=== PATIENT | female | born 1960 | race Caucasian/White ===

== ENCOUNTER 2019-09-07 09:59 | Emergency (ER) | payer BC, SELFPAY ==
[2019-09-07 10:00] VITALS: BP 165/107; PULSE 71; RESP 18; TEMP 36.6; O2SAT 100; BMI 30.4
[2019-09-07 10:43] LABS: Absolute Lymphocyte Count 1.18 X10^3/uL (0.83-4.51); Absolute Neutrophil Count 11.3 X10^3/uL (2.0-7.7); Basophil# 0.06 X10^3/uL; Basophil% 0.4 % (0-1); Eosinophil# 0.34 X10^3/uL; Eosinophils% 2.5 % (0-5); Hematocrit 45.7 % (37-47); Hemoglobin 15.6 g/dL (12.0-15.0); Lymphocyte # 1.18 X10^3/ul (4.0); Lymphocyte % 8.8 % (19-41); Mean Corp Hgb Conc 34.1 g/dL (32-36); Mean Corpuscular Volume 93.6 fL (81-99); Mean Platelet Vol. 9.4 fl (6.2-12.0); Monocyte# 0.59 X10^3/uL; Monocyte% 4.4 % (0-10); NRBC Flagged by Analyzer 0 % (0-5); Neutrophil # 11.26 X10^3/uL (2.7-7.7); Neutrophil % 83.5 % (47-70); Platelet Count 350 K/mm3 (150-450); RBC Distribution Width CV 11.7 % (11.6-14.6); RBC Distribution Width SD 40.3 fl (35.1-43.9); Red Blood Count 4.88 M/mm3 (4.2-5.4); White Blood Count 13.5 K/mm3 (4.4-11.0)
[2019-09-07] MEDS: DiphenhydrAMINE 50 MG/ML Syringe 25 MG IV (10:49)
[2019-09-07] MEDS: Lactated Ringers 1,000 ML 999 ML IV ×2 (10:49→11:30)
[2019-09-07] MEDS: proMETHazine 25 MG/ML Syringe 12.5 MG IV (10:50)
[2019-09-07] MEDS: Ketorolac 15 MG/ML Vial IV (10:51)
--- NOTE | 2019-09-07 10:52 | ED.VIS.GI ---
History of Present Illness Chief Complaint: Nausea/Vomiting/Diarrhea Narrative: Patient presenting for evaluation secondary to nausea vomiting diarrhea and headache. Patient reports that she has been having a GI illness over the course of this week starting on Tuesday. She initially states that it started with significant diarrhea but tapered off. She now reports that she is had an onset of severe nausea and vomiting since yesterday with difficulty keeping things down. Patient states that her emesis is nonbloody and nonbilious, and her stool was not mucousy and nonbloody. She denies any recent admissions, travel, antibiotic use, or sick exposures. Patient has a history of migraines, states that she started to develop a headache today. This is generalized headache. No visual changes numbness or weakness. Review of systems otherwise negative. Patient also endorses that she has been off of her citalopram over the course the last week because she ran out of it. She is been on it for at least 10 years. Past Medical History - Allergies and Home Meds Allergies/Adverse Reactions: Allergies codeine Adverse Reaction (Verified 09/07/19 10:02) Itching Primary Care Physician: Care Physician,No Primary [Primary Care Provider] - Past Medical History: - - Migraine headaches, hypertension Surgical History: ,  Smoking Status: Current every day smoker Review of Systems All systems negative except as indicated General: Reports: Chills, Malaise Eyes: Denies: Visual changes - bilaterally, Diplopia ENT: Denies: Rhinorrhea, Sore throat Cardiovascular: Denies: Chest pain, Palpitations Respiratory: Denies: Dyspnea, Cough, Dyspnea on exertion Gastrointestinal: Reports: Abdominal pain, Nausea, Vomiting, Diarrhea Genitourinary: Denies: Dysuria, Hematuria, Frequency Musculoskeletal: Reports: Myalgias Skin: Denies: Rash, Wounds Neurological: Reports: Headache Psych: Denies: Depression Endocrine: Denies: Heat intolerance, Cold intolerance Hematologic: Denies: Easy bruising, Easy bleeding Allergy: Denies: Swelling of the mouth Physical Exam Vital Signs/Narrative: Vital Signs Temp Pulse Resp BP Pulse Ox 09/07/19 10:00 98 F 71 18 165/107 H 100 Inital Vital Signs reviewed: Yes General: Well nourished, Well developed, No Acute Distress Head: Normocephalic, Atraumatic. Negative for: Tenderness Eyes: Perrl, EOMI ENT: Moist mucous membranes, No rhinorrhea Neck: Supple, Nontender Cardiovascular: Regular rate, Regular rhythm, No murmurs Respiratory: No distress, CTA bilaterally, Chest nontender Abdomen: Soft, Nondistended, Tender - Diffuse nonlocalizing with no guarding or rebound tenderness Back: Nontender, Normal Inspection Extremities: Nontender, No edema Skin: Normal color, No rash Neurological: Alert, Oriented x3, Cranial nerves II-XII grossly intact, Normal Strength, Normal Sensation Psychological: Normal affect, Normal Mood Diagnostic/Tx/Re-eval - Medical Decision Making Patient presented secondary to headache nausea vomiting diarrhea. Patient's abdominal exam is benign I do not feel that imaging is indicated. She was complaining of a migraine headache as well as GI symptoms so she was given Toradol, Reglan, and Benadryl as well as 2 L of lactated Ringer's. Patient's laboratory work-up was obtained. CBC demonstrate a leukocytosis of 13 with a neutrophilic predominance. Chemistry was actually found to be within normal limits, modest elevation of the patient's alkaline phosphatase. Patient upon repeat evaluation had significant symptomatic improvement. At this point I feel the patient is safe and appropriate for discharge home with continued outpatient treatment. Patient will be sent home with a course of Phenergan for nausea control. All questions were answered and patient was discharged. Disposition: Home ED Disposition - Plan for ED Patient: Disposition: Home or Assisted Living Diagnosis: Gastroenteritis, Migraine headache Instructions: VOMITING AND DIARRHEA, Nonspecific (Adult) Prescriptions: proMETHazine tablet [Phenergan] 25 mg PO Q6H PRN PRN #10 tab PRN Reason: Nausea Prescription Printed Additional Instructions: Follow-up with your primary care physician if you are not improving within the next 3 to 5 days
[2019-09-07 10:58] LABS: AST(SGOT) 15 U/L (15-37); Alanine Aminotransfer ALT/SGPT 23 U/L (13-56); Albumin, Serum 3.8 g/dL (3.2-5.0); Alkaline Phosphatase 120 U/L (45-117); Anion Gap 7 (5-15); BUN 19 mg/dL (7-18); BUN/Creat Ratio 19.4 RATIO (10-20); Calcium,Total 9.2 mg/dL (8.5-10.1); Chloride 105 mmol/L (98-107); Creatinine, Serum 0.98 mg/dL (0.55-1.02); EST Glomerular Filtration Rate 62 mL/min (>60); Est Glom Filt Rate - Afr Amer 75 mL/min (>60); Estimated Creatinine Clearance 63.12 ml/min; Globulin 3.8 g/dL (2.2-4.2); Glucose 204 mg/dL (74-106); Magnesium 1.7 mg/dL (1.6-2.6); Potassium 4.1 mmol/L (3.5-5.1); Protein, Total 7.6 g/dL (6.4-8.2); Sodium Level 139 mmol/L (136-145)
[2019-09-07 14:35] VITALS: BP 148/70; PULSE 82; RESP 18; O2SAT 97
== END 2019-09-07 14:36 | disposition home or self-care (01) ==
PROVIDERS: Emergency Provider Emergency Medicine
DX: K52.9 Noninfective gastroenteritis and colitis, unspecified (principal); G43.909 Migraine, unspecified, not intractable, without status migrainosus; I10 Essential (primary) hypertension; F17.200 Nicotine dependence, unspecified, uncomplicated; Z88.5 Allergy status to narcotic agent
CPT/HCPCS: 80053; 83735; 85025; 96361; 96374; 96375; 99283

== ENCOUNTER 2020-12-21 10:28 | Emergency (ER) | payer BC, SELFPAY ==
[2020-12-21 10:30] VITALS: BP 150/107; PULSE 86; RESP 16; TEMP 35.9; O2SAT 98; BMI 31.3
[2020-12-21 10:50] VITALS: BP 150/107; PULSE 86; RESP 16; TEMP 36.1; O2SAT 98
--- NOTE | 2020-12-21 10:53 | CT_ITS ---
STUDY: CT ABDOMEN AND PELVIS WITH CONTRAST REASON FOR EXAM: Female, 60 years old. LLQ pain -- IV PO Contrast RADIATION DOSAGE (If Supplied By Facility): CTDIvol = ( 16.67 ) mGy, DLP = ( 1062.83 ) mGycm TECHNIQUE: Transaxial images were obtained from the dome of the diaphragm to the symphysis pubis with oral contrast. Oral and amp;amp; IV Gastrografin and amp;amp; 100mL Isovue-300 was administered. Sagittal and coronal images were reconstructed. Individualized dose optimization techniques were used for this CT. COMPARISON: None. FINDINGS: The visualized lung bases are unremarkable. The visualized portions of the heart are within normal limits. Normal liver. Normal gallbladder and extrahepatic biliary system. Normal spleen. Normal pancreas. Normal bilateral adrenal glands. Normal right kidney. 5 mm obstructing stone of the distal left ureter with moderate ureteral dilatation and hydronephrosis. Normal visualized stomach. Normal small intestine. Normal colon. The appendix is visualized and appears normal. Normal abdominal aorta. Normal inferior vena cava. Normal retroperitoneum. Normal urinary bladder. Normal abdominal wall. Normal osseous structures. CT/Abdomen/Pelvis WITH Contrast IMPRESSION: 5 mm obstructing stone of the distal left ureter with moderate ureteral dilatation and hydronephrosis. Electronically Signed: Palmer Beckford MD at 13:28 EST Tel , Service support ,
--- NOTE | 2020-12-21 10:56 | ED.DCSUM_ITS ---
History of Present Illness Chief Complaint: Abd Pain Informant: Patient Onset: Yesterday Current Severity: Moderate Maximum Severity: Moderate Narrative: Patient presents with left lower quadrant pain. Patient states pain started yesterday. She has had nausea and vomiting. Last bowel movement was 2 days ago. She does note that her bowel movements have been abnormal for the last week, describing them as being more soft and mucousy. She has had chills. Patient does report a history of diverticulitis that was noted on a colonoscopy approximately 10 years ago. She was treated with antibiotics at that time. - Past Medical History (1) Anxiety Status: Chronic (2) Benign hypertension Status: Chronic Past Medical History - Allergies and Home Meds Allergies/Adverse Reactions: Allergies codeine Adverse Reaction (Verified 12/21/20 10:30) Itching metformin Adverse Reaction (Verified 12/21/20 10:30) Nausea/Vom/Diarrhea Primary Care Physician: Trevor Avilez DO [Primary Care Provider] - Prior records reviewed: Yes Surgical History: , Lives: Spouse/ Significant Other Smoking Status: Current every day smoker Review of Systems General: Denies: Chills, Fever Eyes: Denies: Visual changes - bilaterally ENT: Denies: Bilateral ear pain Cardiovascular: Denies: Chest pain Respiratory: Denies: Dyspnea, Cough Gastrointestinal: Reports: Abdominal pain, Nausea, Vomiting Genitourinary: Denies: Dysuria Musculoskeletal: Denies: Swelling, Extremity Pain Skin: Denies: Rash Neurological: Denies: Headache Hematologic: Denies: Easy bruising, Easy bleeding Allergy: Denies: Uticaria Physical Exam Vital Signs/Narrative: Vital Signs Temp Pulse Resp BP Pulse Ox 12/21/20 10:50 96.9 F L 86 16 150/107 H 98 12/21/20 10:30 96.6 F L 86 16 150/107 H 98 Inital Vital Signs reviewed: Yes General: Well nourished, Well developed Head: Normocephalic Neck: Supple Cardiovascular: Regular rate, Regular rhythm Respiratory: No distress, CTA bilaterally Abdomen: Soft, Tender - Moderate left-sided tenderness to palpation., Hypoactive bowel sounds. Negative for: Guarding, Rebound tenderness Extremities: Nontender Skin: Normal color Neurological: Alert, Oriented x3 Psychological: Normal affect Diagnostic/Tx/Re-eval Impressions Abdomen/Pelvis CT 12/21/20 10:53 IMPRESSION: 5 mm obstructing stone of the distal left ureter with moderate ureteral dilatation and hydronephrosis. Electronically Signed: Palmer Beckford MD at 13:28 EST Tel , Service support , 12/21/20 10:53 Abdomen/Pelvis WITH Contrast [CT] Stat Laboratory Results 12/21/20 12/21/20 11:00 11:00 WBC 8.9 RBC 4.78 Hgb 15.1 H Hct 44.6 MCV 93.3 MCH 31.6 MCHC 33.9 RDW Std Deviation 42.5 RDW Coeff of Estela 12.1 Plt Count 322 MPV 9.6 Immature Gran % (Auto) 0.200 Neut % (Auto) 70.0 Lymph % (Auto) 15.9 L [place] % (Auto) 10.2 H Eos % (Auto) 2.7 Baso % (Auto) 1.0 Absolute Neuts (auto) 6.2 Absolute Lymphs (auto) 1.41 Nucleated RBC % 0 Sodium 138 Potassium 3.9 Chloride 104 Carbon Dioxide 24.0 Anion Gap 10 BUN 17 Creatinine 1.34 H Estim Creat Clear Calc 43.96 Est GFR (MDRD) Af Amer 52 L Est GFR (MDRD) Non-Af 43 L BUN/Creatinine Ratio 12.7 Glucose 115 H Calcium 9.3 - Medical Decision Making Patient was given morphine and Zofran along with IV fluids. Blood work is largely unremarkable. Creatinine is slightly bumped. CT scan with p.o. and IV contrast is obtained. She has a 5 mm left distal ureteral stone. No evidence of diverticulitis. Test results are discussed with her. Pain is well controlled at this time. She will be given analgesics and antiemetics for home. She is referred to urology for follow-up. She is given return instructions. ED Disposition - Plan for ED Patient: Disposition: Home or Assisted Living Diagnosis: Ureterolithiasis Instructions: ED Kidney Stone w/ Colic Prescriptions: Tamsulosin HCl [Flomax] 0.4 mg PO DAILY #7 cap Transmission Status: Pending to [id number] Hydrocodone Bitart/Apap 5-325 [[place] 5MG-325MG] 1 tablet PO Q6H PRN PRN 3 Days #10 tablet PRN Reason: Pain Transmission Status: Received by [id number] Ketorolac [Toradol] 10 mg PO Q8H PRN #10 tab PRN Reason: Pain Score 4-10 Transmission Status: Pending to [id number] Ondansetron [Zofran Odt] 4 mg PO Q8H PRN PRN #10 tab PRN Reason: Nausea Transmission Status: Pending to [id number] Referrals: Julius Dangelo MD [STAFF PHYSICIAN] - 3-5 Days if not improving
[2020-12-21 10:57] VITALS: BP 138/76; PULSE 69; RESP 17; O2SAT 98
[2020-12-21] MEDS: 0.9% Normal Saline 1,000 ML 150 ML IV (11:11)
[2020-12-21] MEDS: Ondansetron 4 MG/2 ML Vial IV (11:11)
[2020-12-21] MEDS: Morphine 4 MG/ML Syringe IV (11:11)
[2020-12-21 11:12] LABS: Absolute Lymphocyte Count 1.41 X10^3/uL (0.83-4.51); Absolute Neutrophil Count 6.2 X10^3/uL (2.0-7.7); Basophil# 0.09 X10^3/uL; Eosinophil# 0.24 X10^3/uL; Eosinophils% 2.7 % (0-5); Hematocrit 44.6 % (37-47); Hemoglobin 15.1 g/dL (12.0-15.0); Lymphocyte # 1.41 X10^3/ul (4.0); Lymphocyte % 15.9 % (19-41); Mean Corp Hgb Conc 33.9 g/dL (32-36); Mean Corpuscular Hgb 31.6 pg (27.0-32.0); Mean Corpuscular Volume 93.3 fL (81-99); Mean Platelet Vol. 9.6 fl (6.2-12.0); Monocyte# 0.91 X10^3/uL; Monocyte% 10.2 % (0-10); NRBC Flagged by Analyzer 0 % (0-5); Neutrophil # 6.21 X10^3/uL (2.7-7.7); Platelet Count 322 K/mm3 (150-450); RBC Distribution Width CV 12.1 % (11.6-14.6); RBC Distribution Width SD 42.5 fl (35.1-43.9); Red Blood Count 4.78 M/mm3 (4.2-5.4); White Blood Count 8.9 K/mm3 (4.4-11.0)
[2020-12-21 11:28] LABS: Anion Gap 10 (5-15); BUN 17 mg/dL (7-18); BUN/Creat Ratio 12.7 RATIO (10-20); Calcium,Total 9.3 mg/dL (8.5-10.1); Chloride 104 mmol/L (98-107); Creatinine, Serum 1.34 mg/dL (0.55-1.02); EST Glomerular Filtration Rate 43 mL/min (>60); Est Glom Filt Rate - Afr Amer 52 mL/min (>60); Estimated Creatinine Clearance 43.96 ml/min; Glucose 115 mg/dL (74-106); Potassium 3.9 mmol/L (3.5-5.1); Sodium Level 138 mmol/L (136-145)
[2020-12-21 13:12] VITALS: BP 146/83; PULSE 65; RESP 16; O2SAT 98
== END 2020-12-21 13:58 | disposition home or self-care (01) ==
PROVIDERS: Emergency Provider Emergency Medicine; PCP Student in an Organized Health Care Education/Training Program
DX: N13.2 Hydronephrosis with renal and ureteral calculous obstruction (principal); I10 Essential (primary) hypertension; F17.200 Nicotine dependence, unspecified, uncomplicated; Z88.5 Allergy status to narcotic agent
CPT/HCPCS: 74177; 80048; 85025; 96361; 96374; 96375; 99283; J7030; Q9967; A4216; J2405

== ENCOUNTER 2021-01-21 10:11 | Outpatient (RCR) | payer BC, SELFPAY | END 2021-03-24 23:59 | LOC: IMMUN 10:11 | PROVIDERS: PCP Student in an Organized Health Care Education/Training Program; Visit Provider Family Medicine | DX: Z23 Encounter for immunization (principal) | CPT/HCPCS: 0001A; 91300 ==

== ENCOUNTER 2022-05-29 08:24 | Emergency (ER) | payer BC, SELFPAY ==
[2022-05-29 08:25] VITALS: BP 167/88; PULSE 84; RESP 26; TEMP 36.3; O2SAT 100; BMI 30.2
--- NOTE | 2022-05-29 08:53 | EDS_ITS ---
HPI HPI - GI History of Present Illness Chief Complaint: Nausea/Vomiting Narrative Narrative: 62-year-old female presenting with headache as well as nausea and vomiting. She states she woke up with it and has been vomiting for about 3 hours. No hematemesis or coffee-ground emesis. She has some mild diffuse cramping pain as well as epigastric pain. Patient states that last evening she drank a couple of glasses of wine. She states this would normally make her sick. She also smoked marijuana which she does regularly which never makes her sick. Patient does report that her family member did have a flulike symptom the other day. She has not had a fever but does feel a little bit rundown today. She reports body aches and chills. No cough, shortness of breath, chest pain. PFSH PFSH Home Medications citalopram 20 mg tablet 40 mg PO QHS 02/08/14 [History Last Taken 09/06/19] lisinopril 10 mg tablet 10 mg PO DAILY 02/08/14 [History Last Taken 09/06/19] ondansetron 4 mg disintegrating tablet 4 mg PO Q8H PRN PRN Nausea #10 tabs 06/10/17 [Rx Last Taken 09/07/19] promethazine 25 mg tablet 25 mg PO Q6H PRN PRN Nausea #10 tabs 09/07/19 [Rx Last Taken Unknown] Meloxicam 12/21/20 [History Last Taken Unknown] carvedilol 12.5 mg tablet 12.5 mg PO BID 12/21/20 [History Last Taken Unknown] cyclobenzaprine 10 mg tablet 10 mg PO 12/21/20 [History Last Taken Unknown] ketorolac 10 mg tablet 10 mg PO Q8H PRN Pain Score 4-10 #10 tabs 12/21/20 [Rx Last Taken Unknown] ondansetron 4 mg disintegrating tablet 4 mg PO Q8H PRN PRN Nausea #10 tabs 12/21/20 [Rx Last Taken Unknown] tamsulosin 0.4 mg capsule 0.4 mg PO DAILY #7 caps 12/21/20 [Rx Last Taken Unknown] ondansetron 4 mg disintegrating tablet 4 mg PO Q8H PRN nausea and vomiting #10 tabs 05/29/22 [Rx Last Taken Unknown] Allergy/AdvReac Type Severity Reaction Status Date / Time codeine AdvReac Itching Verified 05/29/22 08:29 metformin AdvReac Nausea/Vom/ Verified 05/29/22 08:29 Diarrhea Social History Smoking Status: Current every day smoker tobacco type: cigarettes ROS ROS ED Constitutional Constitutional ED: Reports chills and sweats ENT ENT ED: Denies rhinorrhea or sore throat Cardiovascular Cardiovascular: Denies chest pain or palpitations Respiratory/Chest Respiratory/Chest: Denies cough or dyspnea Gastrointestinal Gastrointestinal: Reports abdominal pain, nausea and vomiting Genitourinary Genitourinary ED: Denies dysuria or hematuria Musculoskeletal Musculoskeletal: Reports myalgias Integumentary Denies abscess or Abrasions Neurologic Neurologic: Reports headache(s); Denies paresthesias or weakness Psychiatric Psychiatric: Denies anxiety or depression Endocrine Endocrinology: Denies polydipsia or polyphagia EXAM Physical Exam Const Vital Signs: 05/29/22 08:25 Temperature 97.3 F L Temperature Source Temporal Pulse Rate 84 Respiratory Rate 26 H Blood Pressure 167/88 H Blood Pressure Mean 114 Pulse Ox 100 Oxygen Delivery Method Room Air Positive well nourished General Appearance ED: NAD; Negative for pallor HEENT Reports TM's clear and moist mucous membranes normocephalic Tympanic Membrane ED: Yes TM's clear Eyes PERRL and EOMs intact bilaterally Resp normal respiratory effort and clear to auscultation bilaterally Cardio regular rate and regular rhythm GI GI Narrative: Benign abdomen Neuro CN's II-XII intact bilaterally Sensorium / Orientation: alert, oriented to person, oriented to place and oriented to time Motor Exam: strength 5/5 throughout Psych mental status grossly normal Skin General Skin Exam: Negative for jaundice or pallor MDM MDM MDM Narrative Medical decision making narrative: 62-year-old female headache, nausea, vomiting. She has not had a fever. She does describe body aches and chills as well. Patient had 2 glasses of wine last evening but did not think this was contributory. She does have some generalized abdominal cramping. Her abdominal exam is benign. She has no history of pancreatitis. Zofran and Pepcid. Her nausea did improve. Blood work shows a slight leukocytosis of 12.3 which is likely reactive to the vomiting. Renal function electrolytes normal. LFTs within normal limits. Lipase is normal. EtOH within normal limits. COVID testing is negative. On reevaluation patient feeling improved. She request something for headache and was given a dose of Toradol IV. At this point she feels well enough to go home. I will prescribe her some Zofran for home. She is counseled to advance her diet as tolerated. Impression: 1. Nausea/vomiting sign 2. Headache 3. Leukocytosis 4. Abdominal pain Lab Data Attestation: I reviewed the patient's lab results. Labs: Laboratory Results - last 24 hr 05/29/22 05/29/22 05/29/22 09:10 09:10 09:10 WBC 12.3 H RBC 4.16 L Hgb 13.7 Hct 40.0 MCV 96.2 MCH 32.9 H MCHC 34.3 RDW Std Deviation 42.2 RDW Coeff of Estela 12.0 Plt Count 295 MPV 9.2 Immature Gran % (Auto) 0.600 Neut % (Auto) 81.8 H Lymph % (Auto) 9.3 L [place] % (Auto) 6.7 Eos % (Auto) 1.0 Baso % (Auto) 0.6 Absolute Neuts (auto) 10.1 H Absolute Lymphs (auto) 1.15 Nucleated RBC % 0 Sodium 140 Potassium 3.9 Chloride 107 Carbon Dioxide 28.0 Anion Gap 5 BUN 17 Creatinine 0.93 Estim Creat Clear Calc 61.77 Est GFR (MDRD) Af Amer 79 Est GFR (MDRD) Non-Af 65 BUN/Creatinine Ratio 18.3 Glucose 124 H Calcium 8.7 Total Bilirubin 0.40 AST 17 ALT 25 Alkaline Phosphatase 86 Total Protein 7.1 Albumin 3.6 Globulin 3.5 Albumin/Globulin Ratio 1.0 Lipase 156 Ethyl Alcohol < 3.0 Discharge Plan Triage Chief Complaint: Nausea/Vomiting ED Provider: Pb Park Dx/Rx/DC Orders Instructions: Self-Care for Headaches, ED Viral Syndrome (Adult), ED Vomiting (Adult) Prescriptions: New ondansetron 4 mg tablet,disintegrating 4 mg PO Q8H PRN (Reason: nausea and vomiting) Qty: 10 0RF No Action citalopram 20 MG tablet 40 mg PO QHS lisinopril 10 MG tablet 10 mg PO DAILY ondansetron 4 MG tablet 4 mg PO Q8H PRN PRN (Reason: Nausea) Qty: 10 0RF Rx Instructions: promethazine 25 MG tablet 25 mg PO Q6H PRN PRN (Reason: Nausea) Qty: 10 0RF cyclobenzaprine 10 MG tablet 10 mg PO carvedilol 12.5 MG tablet 12.5 mg PO BID Meloxicam ketorolac 10 MG tablet 10 mg PO Q8H PRN (Reason: Pain Score 4-10) Qty: 10 0RF ondansetron 4 MG tablet 4 mg PO Q8H PRN PRN (Reason: Nausea) Qty: 10 0RF tamsulosin 0.4 MG capsule 0.4 mg PO DAILY Qty: 7 0RF Primary Care Provider: Trevor Avilez Referrals: Trevor Avilez DO [Primary Care Provider] - Disposition Disposition: Home, Self Care
[2022-05-29 09:16] LABS: Absolute Lymphocyte Count 1.15 X10^3/uL (0.83-4.51); Absolute Neutrophil Count 10.1 X10^3/uL (2.0-7.7); Basophil# 0.07 X10^3/uL; Basophil% 0.6 % (0-1); Eosinophil# 0.12 X10^3/uL; Hemoglobin 13.7 g/dL (12.0-15.0); Lymphocyte # 1.15 X10^3/ul (0.83-4.51); Lymphocyte % 9.3 % (19-41); Mean Corp Hgb Conc 34.3 g/dL (32-36); Mean Corpuscular Hgb 32.9 pg (27.0-32.0); Mean Corpuscular Volume 96.2 fL (81-99); Mean Platelet Vol. 9.2 fl (6.2-12.0); Monocyte# 0.83 X10^3/uL; Monocyte% 6.7 % (0-10); NRBC Flagged by Analyzer 0 % (0-5); Neutrophil # 10.07 X10^3/uL (2.7-7.7); Neutrophil % 81.8 % (47-70); Platelet Count 295 K/mm3 (150-450); RBC Distribution Width SD 42.2 fl (35.1-43.9); Red Blood Count 4.16 M/mm3 (4.2-5.4); White Blood Count 12.3 K/mm3 (4.4-11.0)
[2022-05-29] MEDS: 0.9% Normal Saline 1,000 ML 999 ML IV (09:16)
[2022-05-29] MEDS: Famotidine 200 MG/20 ML MDV 20 MG in 0.9% Normal Saline (Pres. free 8 ML 300 MG IV (09:16)
[2022-05-29] MEDS: Ondansetron 4 MG/2 ML Vial IV (09:18)
[2022-05-29 09:34] LABS: AST(SGOT) 17 U/L (15-37); Alanine Aminotransfer ALT/SGPT 25 U/L (13-56); Albumin, Serum 3.6 g/dL (3.2-5.0); Alkaline Phosphatase 86 U/L (45-117); Anion Gap 5 (5-15); BUN 17 mg/dL (7-18); BUN/Creat Ratio 18.3 RATIO (10-20); Calcium,Total 8.7 mg/dL (8.5-10.1); Chloride 107 mmol/L (98-107); Creatinine, Serum 0.93 mg/dL (0.55-1.02); EST Glomerular Filtration Rate 65 mL/min (>60); Est Glom Filt Rate - Afr Amer 79 mL/min (>60); Estimated Creatinine Clearance 61.77 ml/min; Globulin 3.5 g/dL (2.2-4.2); Glucose 124 mg/dL (74-106); Lipase 156 U/L (73-393); Potassium 3.9 mmol/L (3.5-5.1); Protein, Total 7.1 g/dL (6.4-8.2); Sodium Level 140 mmol/L (136-145)
[2022-05-29 09:38] LABS: Alcohol, Blood (Medical)-Serum < 3.0 mg/dL
[2022-05-29] MEDS: Ketorolac 15 MG/ML Vial IV (10:40)
[2022-05-29 10:44] VITALS: BP 167/88; PULSE 79; RESP 16; O2SAT 98
== END 2022-05-29 11:24 | disposition home or self-care (01) ==
PROVIDERS: Emergency Provider Student in an Organized Health Care Education/Training Program; PCP Student in an Organized Health Care Education/Training Program; Visit Provider Student in an Organized Health Care Education/Training Program
DX: R11.2 Nausea with vomiting, unspecified (principal); F17.210 Nicotine dependence, cigarettes, uncomplicated; R51.9 Headache, unspecified; D72.829 Elevated white blood cell count, unspecified; R10.9 Unspecified abdominal pain; R68.83 Chills (without fever); Z79.899 Other long term (current) drug therapy
CPT/HCPCS: 36415; 80053; 82077; 83690; 85025; 87811; 99285; A4216; J2405; J3490

== ENCOUNTER 2024-09-20 18:27 | Emergency (ER) | payer SELFPAY ==
[2024-09-20 18:28] VITALS: BP 187/111; BP 189/101; PULSE 75; PULSE 83; RESP 21; TEMP 35.4; O2SAT 100; BMI 25.7
[2024-09-20] MEDS: 0.9% Normal Saline (1000mL) 1,000 ML 999 ML IV (18:55)
[2024-09-20] MEDS: DiphenhydrAMINE 50 MG/ML Syringe 25 MG IV (18:55)
[2024-09-20] MEDS: Metoclopramide 10 MG/2 ML Vial IV (18:55)
--- NOTE | 2024-09-20 19:14 | EDS_ITS ---
HPI History of Present Illness Chief Complaint: Headache Informant: patient Narrative Narrative: Worsening nontraumatic headache, hours after awakening today. States had mild symptoms after seeing counselor today for first time for anxiety symptoms worsen. Nausea vomiting multiple times no hematemesis. Photophobia and phonophobia. She has aura. She is started on BuSpar recently. Migraines in the past however no recent flares. She has been emergency room for her migraines before. EMS gave her Zofran. Denies fevers. Reports concerns previously waited too long became dehydrated. History of hypertension did not take her blood pressure medicine today. Prior similar symptoms: Yes [facility] Medical History Depression Anxiety Hypertension Home Medications ?Medication ?Instructions ?Recorded ?Last Taken ?Type citalopram 20 mg tablet 40 mg PO QHS 02/08/14 09/06/19 History lisinopril 10 mg tablet 10 mg PO DAILY 02/08/14 09/06/19 History ondansetron 4 mg disintegrating 4 mg PO Q8H PRN PRN Nausea #10 tabs 06/10/17 09/07/19 Rx tablet promethazine 25 mg tablet 25 mg PO Q6H PRN PRN Nausea #10 09/07/19 Unknown Rx tabs Meloxicam 12/21/20 Unknown History carvedilol 12.5 mg tablet 12.5 mg PO BID 12/21/20 Unknown History cyclobenzaprine 10 mg tablet 10 mg PO 12/21/20 Unknown History ketorolac 10 mg tablet 10 mg PO Q8H PRN Pain Score 4-10 12/21/20 Unknown Rx #10 tabs ondansetron 4 mg disintegrating 4 mg PO Q8H PRN PRN Nausea #10 tabs 12/21/20 Unknown Rx tablet tamsulosin 0.4 mg capsule 0.4 mg PO DAILY #7 caps 12/21/20 Unknown Rx ondansetron 4 mg disintegrating 4 mg PO Q8H PRN nausea and 05/29/22 Unknown Rx tablet vomiting #10 tabs ondansetron 4 mg disintegrating 4 mg PO Q8H PRN PRN Nausea #10 tabs 09/20/24 Unknown Rx tablet Allergy/AdvReac Type Severity Reaction Status Date / Time codeine AdvReac Itching Verified 05/29/22 08:29 metformin AdvReac Nausea/Vom/ Verified 05/29/22 08:29 Diarrhea Social History Smoking Status: Current every day smoker tobacco type: cigarettes ROS ROS ED Constitutional Constitutional ED: Denies chills, fever(s) or sweats Eyes Eyes: Reports other Details: Photophobia ; Denies change in vision ENT ENT ED: Denies dysphagia or sore throat Cardiovascular Cardiovascular: Denies chest pain, leg edema, palpitations or racing heartbeat Respiratory/Chest Respiratory/Chest: Denies cough, dyspnea or dyspnea on exertion Gastrointestinal Gastrointestinal: Reports nausea and vomiting; Denies abdominal pain or diarrhea Genitourinary Genitourinary ED: Denies dysuria, hematuria or urinary frequency Musculoskeletal Musculoskeletal: Denies back pain, extremity pain or neck pain Integumentary Denies rash or wounds Neurologic Neurologic: Reports headache(s); Denies paresthesias or weakness EXAM Physical Exam Const Vital Signs: 09/20/24 18:28 09/20/24 18:28 09/20/24 20:28 Temperature 95.7 F L Temperature Source Temporal Pulse Rate 83 75 78 Respiratory Rate 21 H 21 H Blood Pressure 187/111 H 189/101 H 160/98 H Blood Pressure Mean 136 130 118 Pulse Ox 100 100 99 Oxygen Delivery Method Room Air Room Air 09/20/24 20:46 Temperature 98.0 F Temperature Source Pulse Rate 90 Respiratory Rate 18 Blood Pressure 126/72 H Blood Pressure Mean 90 Pulse Ox 98 Oxygen Delivery Method Positive well nourished and well developed Constitutional Narrative: Nontoxic General Appearance ED: well developed HEENT Reports moist mucous membranes normocephalic and atraumatic Eyes EOMs intact bilaterally and conjunctivae normal General Eye ED: Yes normal appearance of both eyes Neck no lymphadenopathy, supple and no meningeal signs General: Negative for tenderness Chest Wall Chest: Negative for tenderness Resp normal respiratory effort and normal air movement Effort and Inspection: symmetric chest movement; Negative for respiratory distress Cardio regular rate, regular rhythm and no murmurs Peripheral Pulses: pulses 2+ throughout GI normal to inspection, nondistended, normoactive bowel sounds and non-tender Palpation: Negative for guarding or rebound tenderness present Back/Spine no CVA tenderness and no thoracic nor lumbar tenderness Extremity normal to inspection General Extremety ED: Negative for edema or tenderness General Extremity: Negative for edema Neuro oriented x3, CN's II-XII intact bilaterally and no sensory deficits noted Sensorium / Orientation: awake and alert Skin no rashes or lesions noted and no wounds MDM MDM MDM Narrative Medical decision making narrative: Interventions / MDM: Differential diagnosis: Migraine headache Diagnosis considered but do not suspect: No clinical meningitis My EKG interpretation: N/A Imaging independently reviewed and interpreted by myself: N/A External documents reviewed: N/A Test considered but not ordered:N/A ED course: Patient elevated blood pressure like for migraines and not taking her blood pressure medicines. She is nontoxic no focal deficit no meningismus. Improved symptoms with migraine cocktail in the past. IV fluids will be given, Reglan and Benadryl. Will reevaluate. 2030: Feeling much better on reevaluation. Discharged with outpatient follow- up. All questions were answered. Re-evaluation: stable Disposition discussed with patient/family/significant other: Patient Case discussed with consulting clinician: N/A This note was generated with [employer] dictation software. It may contain incorrect words, spelling, and punctuation that were not noted in checking the note before signing. Discharge Plan Triage Chief Complaint: Headache ED Provider: Chauncey Haas Dx/Rx/DC Orders Clinical Impression: Headache, migraine, Nausea & vomiting Instructions: ED, Migraine (Classical), ED Vomiting (Adult) Prescriptions: New ondansetron 4 mg tablet,disintegrating 4 mg PO Q8H PRN PRN (Reason: Nausea) Qty: 10 0RF No Action citalopram 20 MG tablet 40 mg PO QHS lisinopril 10 MG tablet 10 mg PO DAILY ondansetron 4 MG tablet 4 mg PO Q8H PRN PRN (Reason: Nausea) Qty: 10 0RF Rx Instructions: promethazine 25 MG tablet 25 mg PO Q6H PRN PRN (Reason: Nausea) Qty: 10 0RF cyclobenzaprine 10 MG tablet 10 mg PO carvedilol 12.5 MG tablet 12.5 mg PO BID Meloxicam ketorolac 10 MG tablet 10 mg PO Q8H PRN (Reason: Pain Score 4-10) Qty: 10 0RF ondansetron 4 MG tablet 4 mg PO Q8H PRN PRN (Reason: Nausea) Qty: 10 0RF tamsulosin 0.4 MG capsule 0.4 mg PO DAILY Qty: 7 0RF ondansetron 4 mg tablet,disintegrating 4 mg PO Q8H PRN (Reason: nausea and vomiting) Qty: 10 0RF Primary Care Provider: ANNAMARIA LILLY Referrals: ANNAMARIA LILLY CRNP [Primary Care Provider] - 1-2 Weeks Activity Restrictions/Additional Instructions: Headache improved with migraine cocktail. Elevated blood pressure in the ED. Take your blood pressure medicine at home. Use Zofran as needed for nausea or vomiting continue oral fluids for hydration. Print Language: [place] Citizen Disposition Disposition: Home, Self Care Discharge Date/Time: 09/20/24 20:47
[2024-09-20 20:28] VITALS: BP 160/98; PULSE 78; O2SAT 99
[2024-09-20 20:46] VITALS: BP 126/72; PULSE 90; RESP 18; TEMP 36.7; O2SAT 98
== END 2024-09-20 20:47 | disposition home or self-care (01) ==
PROVIDERS: Emergency Provider Emergency Medicine; PCP Nurse Practitioner Adult Health; Visit Provider Emergency Medicine
DX: G43.909 Migraine, unspecified, not intractable, without status migrainosus (principal); F17.210 Nicotine dependence, cigarettes, uncomplicated; I10 Essential (primary) hypertension; F41.9 Anxiety disorder, unspecified; F32.A Depression, unspecified
CPT/HCPCS: 96361; 96374; 96375; 99285

== ENCOUNTER 2025-02-02 19:12 | Emergency (ER) | payer SELFPAY ==
[2025-02-02 19:13] VITALS: BP 156/90; PULSE 110; RESP 18; TEMP 36.7; O2SAT 96; BMI 24.9
--- NOTE | 2025-02-02 19:28 | EX.ED.VIS.HA ---
HPI History of Present Illness Chief Complaint: Headache Onset/Context/Timing Onset: Today and Hours Context: Gradual Timing: Continuous Quality -Headache: Positive for Similar Prior Headaches and Sharp Current Severity: Moderate Maximum Severity: Moderate Associated Symptoms/Injury Associated Symptoms: Positive for Nausea, Vomiting and Photophobia; Negative for Fever, Sore Throat, Sinus Pressure, Numbness, Tingling, Preceding Aura, Visual Changes, Blurred Vision or Visual Loss Injury - BRUSH: Negative for Direct Trauma, Fall or Assault Narrative Narrative: 65-year-old female history of hypertension and migraine headaches. Said she has a gradual onset of a headache about 2 hours ago. Foreign body in the right eye. Has a headache worsened she started with nausea and vomiting. She has had migraine headaches like this before. She denies any fever or sinus congestion. She denies any fall or recent head trauma. He is on no blood thinners. She is complaining of photophobia. She is not on any blood thinners. Prior similar symptoms: Yes Recent Illness/Hospitalization: No PFSH [facility], [facility] Medical History Migraines Depression Anxiety Hypertension Home Medications ?Medication ?Instructions ?Recorded ?Last Taken ?Type citalopram 20 mg tablet 40 mg PO QHS 02/08/14 09/06/19 History lisinopril 10 mg tablet 10 mg PO DAILY 02/08/14 09/06/19 History ondansetron 4 mg disintegrating 4 mg PO Q8H PRN PRN Nausea #10 tabs 06/10/17 09/07/19 Rx tablet promethazine 25 mg tablet 25 mg PO Q6H PRN PRN Nausea #10 09/07/19 Unknown Rx tabs Meloxicam 12/21/20 Unknown History carvedilol 12.5 mg tablet 12.5 mg PO BID 12/21/20 Unknown History cyclobenzaprine 10 mg tablet 10 mg PO 12/21/20 Unknown History ketorolac 10 mg tablet 10 mg PO Q8H PRN Pain Score 4-10 12/21/20 Unknown Rx #10 tabs ondansetron 4 mg disintegrating 4 mg PO Q8H PRN PRN Nausea #10 tabs 12/21/20 Unknown Rx tablet tamsulosin 0.4 mg capsule 0.4 mg PO DAILY #7 caps 12/21/20 Unknown Rx ondansetron 4 mg disintegrating 4 mg PO Q8H PRN nausea and 05/29/22 Unknown Rx tablet vomiting #10 tabs ondansetron 4 mg disintegrating 4 mg PO Q8H PRN PRN Nausea #10 tabs 09/20/24 Unknown Rx tablet sumatriptan succinate 50 mg tablet See Rx Instructions PO .COMPLEX 02/02/25 Unknown Rx (Imitrex) #10 tabs Allergy/AdvReac Type Severity Reaction Status Date / Time codeine AdvReac Itching Verified 02/02/25 19:17 metformin AdvReac Nausea/Vom/ Verified 02/02/25 19:17 Diarrhea Social History Smoking Status: Current every day smoker tobacco type: cigarettes ROS ROS ED ROS Narrative Headache. Nausea vomiting. No fever. Constitutional Constitutional ED: Denies chills or fever(s) Eyes Eyes: Denies blurry vision ENT ENT ED: Denies ear pain Cardiovascular Cardiovascular: Denies chest pain Respiratory/Chest Respiratory/Chest: Denies cough or dyspnea Gastrointestinal Gastrointestinal: Reports nausea and vomiting; Denies abdominal pain or diarrhea Genitourinary Genitourinary ED: Denies dysuria or hematuria Musculoskeletal Musculoskeletal: Denies arthralgias Integumentary Denies abscess Neurologic Neurologic: Reports headache(s); Denies paresthesias or weakness Psychiatric Psychiatric: Denies anxiety or depression Endocrine Endocrinology: Denies polydipsia or polyphagia Hematologic/Lymphatic Hematologic/Lymphatic: Denies easy bleeding, easy bruising or lymphadenopathy Allergic/Immunologic Allergic/Immunologic ED: Denies mouth swelling, tongue swelling or urticaria EXAM Physical Exam Narrative Exam Narrative: 65-year-old female sitting upright in bed. Vital signs are stable afebrile she does not look septic or toxic. H EENT exam pupils round react light. Extra motions are intact. Pupils are about 3 mm bilaterally. Moist mucous membranes. No trauma to her face. Nontender. No facial or sinus tenderness. No trauma to her scalp or tenderness. Neck nontender lymphadenopathy. No meningismus. Lungs clear to auscultation bilaterally. Heart tachycardic 110 no murmur. Chest wall ribs nontender. Abdomen soft nontender. Nondistended. No peritoneal signs. Moving all 4 extremities. Nontender no deformity. No edema. Neurologically she is awake alert. Answering questions following commands. Fingertip to nose within normal limits normal dorsi plantarflexion. Normal cashier tube room strength. NIH is 0. Const Vital Signs: 02/02/25 19:13 Temperature 98.0 F Temperature Source Temporal Pulse Rate 110 H Respiratory Rate 18 Blood Pressure 156/90 H Blood Pressure Mean 112 Pulse Ox 96 Oxygen Delivery Method Room Air Positive well nourished and well developed; Negative for cachectic, contractures or unkempt General Appearance ED: well developed; Negative for unkempt, cachectic, contractures, cyanotic, diaphoretic or pallor Nutritional Appearance: Negative for cachectic HEENT Reports moist mucous membranes atraumatic; Negative for trauma, tenderness, temporal artery tenderness or vesicular rash Face and Sinus: Negative for sinus tenderness Eyes PERRL and EOMs intact bilaterally Neck no lymphadenopathy, supple, no meningeal signs and no JVD General: Negative for tenderness Resp normal respiratory effort and clear to auscultation bilaterally Effort and Inspection: Negative for retractions Auscultation: Negative for rales, rhonchi, wheezes or diminished lung sounds Cardio regular rhythm, S1 normal heart sound, S2 normal heart sound and no murmurs; Negative for regular rate Rate: tachycardic GI non-tender and non-distended Auscultation: normoactive bowel sounds Palpation: soft; Negative for firm, tender or mass Back/Spine no CVA tenderness General Back: Negative for CVA tenderness Cervical Spine: Negative for cervical spine tenderness Thoracic Spine / Upper Back: Negative for thoracic spinal tenderness Lumbar Spine / Lower Back: Negative for lumbar spinal tenderness Extremity normal to inspection, full ROM and normal capillary refill General Extremety ED: Negative for edema or tenderness General Extremity: Negative for edema Neuro oriented x3 and CN's II-XII intact bilaterally Sensorium / Orientation: awake, alert, oriented to person and oriented to place; Negative for orientation impaired or lethargic Coordination / Balance: [id number] test normal Motor Exam: strength 5/5 throughout Psych mental status grossly normal Appearance: Negative for unkempt Attitude: No agitated Mood & Affect: anxious; Negative for depressed or tearful Skin General Skin Exam: turgor normal; Negative for jaundice or pallor Lesions: no lesions Rashes: no rashes MDM MDM MDM Narrative Medical decision making narrative: 65-year-old female with a headache with a history of migraines. Normal neurologic exam. Treated with IV fluids, Toradol, Benadryl and Reglan and reassessed. I do not think she needs any imaging. Repeat exam at 8:05 PM. Headache is improving after the IV medications. Nausea is resolved. Repeat exam she clinically looks improved. Neurologic exam remains normal. I gave her a glass of water. Will reassess her in a little bit. Repeat exam patient is doing much better at 8:40 PM. Headache is resolved. Neurologic exam remains normal. She feels comfortable being discharged home. I will write her for some Imitrex. She already has Zofran at home. History & Record Review Discussion w/independent historian: Patient Additional record(s) reviewed:: Prior inpatient record, Prior outpatient record, Prior ED visit and Prior labs Discharge Plan Triage Chief Complaint: Headache ED Provider: Hesham Sosa Dx/Rx/DC Orders Clinical Impression: Acute headache, Migraine, History of hypertension Instructions: ED, Migraine (Classical) Prescriptions: New sumatriptan succinate [Imitrex] 50 mg tablet See Rx Instructions .ROUTE .COMPLEX Qty: 10 0RF Rx Instructions: take 1 tab at onset of headache; if no relief may repeat 1 tab after at least 2 hrs; max = 4 tabs/24 hr No Action citalopram 20 MG tablet 40 mg PO QHS lisinopril 10 MG tablet 10 mg PO DAILY ondansetron 4 MG tablet 4 mg PO Q8H PRN PRN (Reason: Nausea) Qty: 10 0RF Rx Instructions: promethazine 25 MG tablet 25 mg PO Q6H PRN PRN (Reason: Nausea) Qty: 10 0RF cyclobenzaprine 10 MG tablet 10 mg PO carvedilol 12.5 MG tablet 12.5 mg PO BID Meloxicam ketorolac 10 MG tablet 10 mg PO Q8H PRN (Reason: Pain Score 4-10) Qty: 10 0RF ondansetron 4 MG tablet 4 mg PO Q8H PRN PRN (Reason: Nausea) Qty: 10 0RF tamsulosin 0.4 MG capsule 0.4 mg PO DAILY Qty: 7 0RF ondansetron 4 mg tablet,disintegrating 4 mg PO Q8H PRN (Reason: nausea and vomiting) Qty: 10 0RF ondansetron 4 mg tablet,disintegrating 4 mg PO Q8H PRN PRN (Reason: Nausea) Qty: 10 0RF Primary Care Provider: ANNAMARIA LILLY Referrals: ANNAMARIA LILLY CRNP [Primary Care Provider] - 1-2 Days if not improving Activity Restrictions/Additional Instructions: Plenty of fluids and rest. Tylenol and Motrin for any pain. For future headaches try the Imitrex. The quicker you get it and after the headache starts the better works. You can also use your nausea medication at home which is ondansetron also called Fuad. Follow-up with your doctor if not improving or return if worse. Print Language: Vietnamese Disposition Disposition: Home, Self Care
[2025-02-02] MEDS: 0.9% Normal Saline (1000mL) 1,000 ML 999 ML IV (19:34)
[2025-02-02] MEDS: DiphenhydrAMINE 50 MG/ML Syringe IV (19:35)
[2025-02-02] MEDS: Ketorolac 15 MG/ML Vial IV (19:37)
[2025-02-02] MEDS: Metoclopramide 10 MG/2 ML Vial IV (19:38)
[2025-02-02 20:49] VITALS: PULSE 95; RESP 18; O2SAT 98
== END 2025-02-02 20:51 | disposition home or self-care (01) ==
PROVIDERS: Emergency Provider Emergency Medicine; PCP Nurse Practitioner Adult Health; Referring Provider Emergency Medicine; Visit Provider Emergency Medicine
DX: G43.909 Migraine, unspecified, not intractable, without status migrainosus (principal); T15.91XA Foreign body on external eye, part unspecified, right eye, initial encounter; I10 Essential (primary) hypertension; F17.210 Nicotine dependence, cigarettes, uncomplicated
CPT/HCPCS: 96361; 96374; 96375; 99283; A4216